=== PATIENT | male | born 1950 | race Caucasian/White ===

== ENCOUNTER → 2017-06-10 | Outpatient (CLI) | payer MEDICARE ==
--- NOTE | 2017-06-10 11:46 | RAD ---
CT of the head without contrast, 06/10/2017: History: Right eye visual disturbance, previous stroke There is mild bilateral cerebral atrophy. There are extensive patchy lucencies in the deep white matter bilaterally compatible with chronic ischemic change. The ventricles are mildly prominent on a compensatory basis. There is no shift of the midline structures. There is no evidence of acute intracranial hemorrhage or mass effect. There is fluid in some of the left mastoid air cells presumably on an inflammatory basis. IMPRESSION: 1. Cerebral atrophy. 2. Extensive bilateral deep white matter lucencies compatible with chronic ischemic change. 3. No acute intracranial abnormality is detected. 4. Left mastoiditis PQRS Compliance Statement: One or more of the following individualized dose reduction techniques were utilized for this examination: 1. Automated exposure control 2. Adjustment of the mA and/or kV according to patient size 3. Use of iterative reconstruction technique
== END | disposition home or self-care (01) ==
LOC: CT 11:20
PROVIDERS: ATTEND Physician Assistant
DX: H53.8 Other visual disturbances (principal); H70.92 Unspecified mastoiditis, left ear; Z86.73 Personal history of transient ischemic attack (TIA), and cerebral infarction without residual deficits
CPT/HCPCS: 70450